=== PATIENT | male | born 1975 | race Caucasian/White ===

== ENCOUNTER 2018-10-15 22:41 | Emergency (ER) | payer MEDICAID ==
[~2018-10-15] VITALS: Ht 170.2 cm; Wt 61.7 kg
[2018-10-15 23:07] VITALS: Ht 170.2 cm; Wt 61.7 kg
[2018-10-15 23:59] LABS: BASOPHIL % 0.2 % (0-2); PLATELET COUNT 178 x10^3mcL (130-400); RED CELL DISTRIBUTION WIDTH 13.3 % (11.5-14.5)
[2018-10-16 00:13] LABS: ALKALINE PHOSPHATASE 59 U/L (46-116); ALT/SGPT 19 U/L (16-63); AST/SGOT 13 U/L (15-37); BILIRUBIN TOTAL 0.5 mg/dL (0.20-1.00); CALCIUM 9.1 mg/dL (8.5-10.1); CARBON DIOXIDE 31.8 mmol/L (21-32); CHLORIDE SERUM 102 mmol/L (98-107); CREATININE SERUM 0.8 mg/dL (0.7-1.3); GFR1 > 60 mL/min; GLUCOSE SERUM 111 mg/dL (74-106); SODIUM SERUM 138 mmol/L (136-145); TOTAL PROTEIN, SERUM 7.8 g/dL (6.4-8.2)
[2018-10-16 00:19] LABS: POTASSIUM SERUM 2.9 mmol/L (3.5-5.1)
[2018-10-16 02:30] VITALS: BP 108/75
== END 2018-10-16 02:30 | disposition home or self-care (01) ==
LOC: ED 22:41
PROVIDERS: Emergency Medicine
DX: E87.6 Hypokalemia (principal); F41.9 Anxiety disorder, unspecified
CPT/HCPCS: J1885; J3480; J7030; Q0092

== ENCOUNTER 2019-12-28 14:05 | Emergency (ER) | payer MEDICAID ==
[~2019-12-28] VITALS: Ht 167.6 cm; Wt 56.2 kg
[2019-12-28 14:12] VITALS: Ht 167.6 cm; Wt 56.2 kg
[2019-12-28 15:11] LABS: BASOPHIL % 0.6 % (0-2); PLATELET COUNT 189 x10^3mcL (130-400); RED CELL DISTRIBUTION WIDTH 13.3 % (11.5-14.5)
[2019-12-28 15:19] LABS: CALCIUM 9.3 mg/dL (8.5-10.1); CARBON DIOXIDE 27.1 mmol/L (21-32); CHLORIDE SERUM 102 mmol/L (98-107); CREATININE SERUM 0.7 mg/dL (0.7-1.3); GFR1 > 60 mL/min; GLUCOSE SERUM 121 mg/dL (74-106); POTASSIUM SERUM 4.4 mmol/L (3.5-5.1); SODIUM SERUM 139 mmol/L (136-145)
[2019-12-28 15:24] LABS: ALBUMIN 3.9 g/dL (3.4-5.0); ALKALINE PHOSPHATASE 51 U/L (46-116); ALT/SGPT 30 U/L (16-63); AST/SGOT 31 U/L (15-37); BILIRUBIN TOTAL 0.9 mg/dL (0.20-1.00); TOTAL PROTEIN, SERUM 7.3 g/dL (6.4-8.2)
[2019-12-28 15:37] LABS: microscopic required? NO
[2019-12-28 15:47] LABS: UA SPECIFIC GRAVITY 1.015 (1.005-1.035); urine erythrocyte NEGATIVE (NEGATIVE)
[2019-12-28 15:58] VITALS: BP 114/68
== END 2019-12-28 16:35 | disposition home or self-care (01) ==
LOC: ED 14:05
PROVIDERS: Emergency Medicine
DX: R53.1 Weakness (principal); F32.9 Major depressive disorder, single episode, unspecified
CPT/HCPCS: J7030; Q0092